=== PATIENT | male | born 2005 | race Caucasian/White ===

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

== ENCOUNTER 2025-03-08 10:46 | Emergency (ER) | payer OTHER, SELFPAY ==
--- NOTE | 2025-03-08 10:48 | ED_ITS ---
HPI - URI/Sore Throat General Chief Complaint: Upper Respiratory Infection Stated Complaint: cough Time Seen by Provider: 03/08/25 10:48 Source: patient Mode of arrival: ambulatory Limitations: no limitations History of Present Illness HPI Narrative: Patient is a 19-year-old male who presents with 2 weeks of sinus congestion pressure. States he has yellow mucus with nasal drainage and with coughing up phlegm.. Patient has history of asthma the head use it twice 1 plain basketball 2 days ago. Denies any shortness of breath at this time. Has taken NyQuil and Benadryl with no relief. Denies any fever, chills, nausea, vomiting, diarrhea. Related Data Home Medications ?Medication ?Instructions ?Recorded ?Confirmed ?Last Taken ?Type albuterol 90 mcg-budesonide 80 inh inhalation 03/08/25 Unknown History mcg/actuation HFA aerosol inhaler (Airsupra) fluticasone propionate 220 inhalation 03/08/25 Unknow n History mcg/actuation HFA aerosol inhaler Allergies Allergy/AdvReac Type Severity Reaction Status Date / Time No Known Allergies Allergy Mild Verified 03/08/25 11:09 Review of Systems Review of Systems: All systems reviewed & are unremarkable except as noted in HPI and below Constitutional: Constitutional: Denies chills, Denies fatigue, Denies fever(s), Denies headache(s), Denies malaise and Denies weakness Eyes: Eyes: Denies blurry vision, Denies itchy eyes and Denies loss of vision ENT: Denies otalgia, Denies headache(s), Reports nasal congestion, Denies sinus pain, Reports sinus pressure and Denies sore throat Cardiovascular: Cardiovascular: Denies chest pain, Denies irregular heart rhythm and Denies dyspnea Respiratory: Respiratory: Reports cough and Denies dyspnea Gastrointestinal: Gastrointestinal: Denies abdominal pain, Denies diarrhea, Denies nausea and Denies vomiting Musculoskeletal: Musculoskeletal: Denies back pain, Denies myalgias and Denies arthralgias Integumentary/Breasts: Skin/Breast: Denies pruritus and Denies rash Neurologic: Denies headache(s), Denies loss of vision and Denies weakness Psychiatric: Psychiatric: Reports no additional psychiatric complaints Endocrine: Endocrine: Denies fatigue Allergic/Immunologic: Allergic/Immunologic: Denies itchy eyes PMFSH Comments At time of signature, agree with nursing past medical, surgical, social and family history. There is no relevant family history pertinent to the presenting complaint. Exam Const: General: cooperative, healthy appearing, comfortable, no acute distress and well nourished Nutritional Appearance: well nourished Orientation/consciousness: patient oriented x3 Limitations: no limitations HENMT: Head: normal to inspection, normocephalic and atraumatic Ears: hearing grossly normal bilaterally, external ears normal, TM's normal bilaterally, EAC's normal and no periauricular adenopathy Face/Nose/Sinus: Normal external nose present, Abnormal mucous membranes and turbinates present erythematous bilateral and diffuse, normal facial exam, sinuses nontender and face symmetric Face and sinus: normal facial exam, sinuses nontender and face symmetric Mouth: Yes Normal oral and palatal mucosa present, Yes lip normal, Yes tongue normal, Yes Normal salivary glands and ducts present, Yes oropharynx normal and Yes moist mucous membranes Teeth and gingiva: dentition normal Throat: posterior oropharynx normal, tonsils normal and uvula midline Eyes: General: appearance normal, both eyes and all related structures Alignment and Position: alignment normal and position normal Periorbital: periorbital findings normal Eyelids: eyelids normal Pupils: Equal, round and reactive pupils present Neck: Neck: normal visual inspection, full ROM, no lymphadenopathy and supple Chest: Chest palpation & inspection: normal inspection of the chest and normal palpation of entire chest wall Resp: Effort & Inspection: normal respiratory effort, able to speak in complete sentences and Actively coughing wet Auscultation: clear to auscultation bilaterally, no crackles, no rales, no rhonchi and no wheezes Cardio: Rate: regular rate Rhythm: regular rhythm Heart sounds: S1 normal heart sound present and S2 normal heart sound present GI: Inspection: normal to inspection Skin: General skin exam: normal color and no rashes or lesions noted Neuro: General: patient oriented x3 and moves all extremities Cranial ne rves: Yes Equal, round and reactive pupils present Speech: normal speech Gait exam (Neuro): Normal gait present Extrem: General: normal to inspection, full ROM and no edema Psych: Appearance: grossly normal and well kempt Mental Status: mental status grossly normal Speech and movement: Normal speech and movement present Affect: normal affect Attitude: cooperative Thought process: Normal thought process present Course Course Emergency Course: Discharge instructions reviewed with patient, as well as provided in writing per nursing staff. The instructions also include specific and strict return/GO TO THE ER as well as f/u information. All questions have been answered, and the patient deny any further questions with discharge and discharge plan. Portions of this record may have been created with voice recognition software Level of Care: Express Care Visit Vital Signs Vital signs: Reviewed MDM - URI/Sore Throat MDM Narrative Medical decision making narrative: Pt well hydrated appearing, in no respiratory distress, hemodynamically stable. Recommend supportive care. The patient is stable at time of discharge the clinical impression was discussed and the patient was given the opportunity to ask questions, which were addressed as completely as possible given the information available at present. Anticipatory guidance and return to care precautions were discussed and the importance of primary care follow-up was stressed and encouraged. The patient voiced understanding of the plan, indications to return, and the need for follow-up. Exam findings show no acute concerns or changes Patient is appropriate for outpatient treatment and follow-up. Differential diagnosis considered: Sidhu virus, strep pharyngitis, allergic rhinitis, upper respiratory tract infection, sinusitis, rhinosinusitis, nasopharyngitis. viral pharyngitis, otitis media, otitis externa, otitis effusion, foreign body, cerumen impaction, viral syndrome, and influenza.? Medical Records Attestation: I reviewed the patient's medical records. Discharge Plan Discharge Clinical Impression: Upper respiratory infection with cough and congestion, History of asthma Patient Disposition: Home Condition: Stable Instructions: Upper Respiratory Infection (ED) Additional Instructions: Take antibiotic as prescribed. Take steroids in the morning with food. Use Tessalon Perles as needed for cough. Other symptomatic treatments include: -Alternate Tylenol and Motrin per package directions for fever or pain: Tylenol 650-1000mg by mouth every 4-6 hours. Do not exceed 4000mg in 24 hours. Advil (Ibuprofen) 600 mg by mouth every 6 hours. Do not exceed 2400mg in 24 hours. 8 AM: Tylenol 11 AM: Ibuprofen 2 PM: Tylenol 5 PM: Ibuprofen 8 PM: Tylenol 11 PM: Ibuprofen 2 AM: Tylenol 5 AM: Ibuprofen -Antihistamine medication such as Benadryl at night and Zyrtec/Claritin/Esperanza during the day can help improve symptoms. -Use Flonase twice a day for 5 days then daily to help reduce the inflammation and dry up your sinuses. -You can also use Sudafed or Mucinex. Be sure to drink plenty of water with these medications at least 8 ounces with every dose and it is important to drink 8 to 10 glasses of water per day. Water is a natural decongestant -Eat and drink things that are easy to swallow, like tea or soup, or popsicles. -Oral rinses such as: Salt water gargles and/or may use topical anesthetic (eg. Chloraseptic spray) or lozenges to relieve dryness or throat pain). -Frequent hand washing or hand medical educator is one of the best ways to prevent spread of infection. -Using a vaporizer or humidifier at night will also help thin secretions and help with coughing up phlegm. Call your Primary Care Doctor and make a follow-up appointment in 3 days. If your cough worsens, you develop a fever greater than 103, you develop shaking c hills, a fast heartbeat, trouble breathing and/or feel you are are breathing much faster than usual, call your Primary Care Doctor or go to the ER. Patient Language: Kinyarwanda Prescriptions: New prednisone 20 mg tablet See Rx Instructions .ROUTE .COMPLEX Qty: 9 0RF Rx Instructions: 40 mg daily x3 days, 20 mg daily x3 days benzonatate 100 mg capsule 100 mg PO BID PRN (Reason: cough) Qty: 14 0RF amoxicillin-pot clavulanate 875-125 mg tablet 1 tablet PO Q12H 10 Days Qty: 20 0RF No Action fluticasone propionate 220 mcg/actuation HFA aerosol inhaler INHALATION Airsupra 90-80 mcg/actuation HFA aerosol inhaler INHALATION Follow-up/Referrals: Irina,Virgen Fitzpatrick MD [Primary Care Provider] - 3 Days Time of Disposition: 11:51
[2025-03-08 10:55] VITALS: BP 134/76; PULSE 81; RESP 18; TEMP 37.1; O2SAT 100
== END 2025-03-08 12:00 | disposition home or self-care (01) ==
PROVIDERS: Emergency Provider Nurse Practitioner Family; PCP Family Medicine
DX: J06.9 Acute upper respiratory infection, unspecified (principal); R05.9 Cough, unspecified; J45.909 Unspecified asthma, uncomplicated
CPT/HCPCS: 99213; G0463

== ENCOUNTER 2025-04-04 09:06 | Emergency (ER) | payer OTHER, SELFPAY ==
--- NOTE | ~2025-04-04 | XR_ITS ---
Examination: XR foot LT min 3V, XR foot RT min 3V Clinical History: bilateral feet pain, pedal bruising 3x days no injury Comparison: None Technique: 3 views left foot, 3 views right foot Findings/impression: Left foot: 1. No fracture, dislocation, or other acute abnormality. Right foot: 1. No fracture, dislocation, or other acute abnormality. Reviewed, dictated and finalized at location [employer]
[2025-04-04 09:17] VITALS: BP 130/72; PULSE 94; RESP 18; TEMP 36.9; O2SAT 100
--- NOTE | 2025-04-04 09:31 | ED_ITS ---
HPI - General Adult General Chief complaint: Extremity Injury, Lower Stated complaint: Both Feet Pain/Bodyaches Time Seen by Provider: 04/04/25 10:29 Source: patient Mode of arrival: ambulatory Limitations: no limitations History of Present Illness HPI narrative: A 19-year-old male presents with concern for bilateral foot pain. Reports on Sunday he got a new bike and was riding his bike in his neighborhood. He reports he did not have any injury or trauma. He was riding in a normal speed up hills, he was wearing tennis shoes. He reports the next day he had bruising on bilateral pedal aspect of his feet and pain with walking. He saw his primary care doctor who told him he could have some ligament strain and advised rest, ibuprofen which he has been doing. Reports he woke up this morning unable to walk because of the pain on his bilateral pedal aspect of his feet. He reports he has also had some body aches and low-grade fever the last few days. MD complaint: Bilateral foot pain Related Data Home Medications ?Medication ?Instructions ?Recorded ?Confirmed ?Last Taken ?Type fluticasone propionate 220 2 puff inhalation 03/08/25 Unknown History mcg/actuation HFA aerosol inhaler Allergies Allergy/AdvReac Type Severity Reaction Status Date / Time No Known Allergies Allergy Mild Verified 04/04/25 10:02 Review of Systems Review of Systems: CONSTITUTIONAL: Reports malaise, low-grade fever. GENITOURINARY: Denies dysuria or hematuria. SKIN: Denies open skin, redness, bruising, warmth. Reports mild swelling in the toes. He reports bruising on the pedal aspects of his bilateral feet MUSCULOSKELETAL: Reports bilateral foot pain and body aches NEUROLOGIC: Denies numbness, weakness, or headache. PSYCHIATRIC: Denies anxiety or depression. All systems reviewed & are unremarkable except as noted in HPI and below PMFSH Comments At time of signature, agree with nursing past medical, surgical, social and family history. There is no relevant family history pertinent to the presenting complaint Exam Narrative: GENERAL: Well-appearing, well-nourished, and in no acute distress. HEAD: Normocephalic, atraumatic. EYES: PERRLA, sclera clear, and EOMI. No nystagmus. ENT: Nares clear. Mucous membranes moist. NECK: Supple. CHEST: No respiratory distress. Speaks in full sentences. HEART: Regular rate and rhythm. Normal peripheral pulses in bilateral feet. EXTREMITIES: Grossly Normal range of motion, grossly Normal strength and sensation without erythema, edema, warmth, compartments do no appear to be swollen, no pain with passive stretching. SKIN: Warm, dry, no visible rash. Slight bruising noted to bilateral pedal aspects of the feet NEURO: Alert and oriented x3. PSYCH: Normal mood and affect Course Course Emergency Course: Patient is aware of, understands and agrees to go to the emergency room. Patient agrees to proceed directly to the emergency department. Portions of this record may have been created with voice recognition software Level of Care: Express Care Visit Vital Signs Vital signs: Vital Signs Temperature 98.5 F 04/04/25 09:17 Pulse Rate 94 04/04/25 09:17 Respiratory Rate 18 04/04/25 09:17 Blood Pressure 130/72 04/04/25 09:17 Pulse Oximetry 100 04/04/25 09:17 Oxygen Delivery Room Air 04/04/25 09:17 Temperature 98.5 F 04/04/25 09:17 Pulse Rate 94 04/04/25 09:17 Respiratory Rate 18 04/04/25 09:17 Blood Pressure 130/72 04/04/25 09:17 Pulse Oximetry 100 04/04/25 09:17 Oxygen Delivery Room Air 04/04/25 09:17 Reviewed. Transfer Transfered to: [facility] Transportation: Other (Private vehicle) Transfer rationale: Concern for rhabdomyolysis Accepting physician: Shama Medical Decision Making [facility] Narrative Medical decision making narrative: Patient is non-toxic appearing and is in no distress. Patient is appropriate for outpatient treatment and follow-up. ? Differential Diagnosis Differential Diagnosis: Soft tissue injury, sprain compartment syndrome, cellulitis, fracture, stress fracture, rhabdomyolysis Vital Signs Vital Signs: Vital Signs Temperature 98.5 F 04/04/25 09:17 Pulse Rate 94 04/04/25 09:17 Respiratory Rate 18 04/04/25 09:17 Blood Pressure 130/72 04/04/25 09:17 Pulse Oximetry 100 04/04/25 09:17 Oxygen Delivery Room Air 04/04/25 09:17 Temperature 98.5 F 04/04/25 09:17 Pulse Rate 94 04/04/25 09:17 Respiratory Rate 18 04/04/25 09:17 Blood Pressure 130/72 04/04/25 09:17 Pulse Oximetry 100 04/04/25 09:17 Oxygen Delivery Room Air 04/04/25 09:17 Critical Care Time Critical Care Time Critical Care Time: No Discharge Plan Discharge Clinical Impression: Bilateral foot pain Patient Disposition: Acute Care Hospital Condition: Stable Patient Language: Amharic Prescriptions: No Action fluticasone propionate 220 mcg/actuation HFA aerosol inhaler 2 puff INHALATION Follow-up/Referrals: Irina,Virgen Fitzpatrick MD [Primary Care Provider] Time of Disposition: 11:07
[2025-04-04 10:41] LABS: EDUAAPPEAR Clear; EDUABILI 1+ (Negative); EDUABLOOD Negative (Negative); EDUACOLOR1 Dark; EDUAGLUCOSE Negative (Negative); EDUAKETONE 1+ (Negative); EDUALEUKO Negative (Negative); EDUANITRATE Negative (Negative); EDUAPH 6.0; EDUAPROTEIN 2+ (Negative); EDUASPGRAVITY 1.025; EDUAUROBILI 1.0
== END 2025-04-04 11:08 | disposition short-term general hospital (02) ==
PROVIDERS: Emergency Provider Nurse Practitioner; PCP Family Medicine
DX: M79.671 Pain in right foot (principal); M79.672 Pain in left foot
CPT/HCPCS: 73630; 81003; 99214; G0463